=== PATIENT | female | born 1980 | race Caucasian/White ===

== ENCOUNTER 2016-07-20 20:35 | Day surgery (SDC) | payer OTHER, SELFPAY ==
[~2016-07-20] VITALS: Ht 172.7 cm; Wt 81.7 kg
--- NOTE | 2016-07-20 22:50 | REPUSA ---
Clinical history: Pain. Findings: Real-time transabdominal and transvaginal ultrasound images of the pelvis were obtained. An anteverted uterus is noted, measuring 10.7 x 6.3 x 7.1 cm. There is an intrauterine gestational sac with a mean sac diameter of 21.5 mm. No pole or yolk sac is identified. The gestational sac is abnormal in shape with questionable chorionic/amniotic separation. There is no evidence of a subchori onic hemorrhage. The right ovary measures 3.9 x 2.2 x 2.3 cm. The left ovary measures 3.0 x 2.3 x 2.2 cm. No adnexal masses are seen. There are multiple bilateral simple ovarian cysts. Color Doppler brett w is seen within both ovaries. There is no evidence of free fluid. Impression: 1. Single intrauterine gestation measuring 7 weeks 1 day by ultrasound measurements. However, no feta l pole is identified, the gestational sac is irregular in appearance. The findings are suspicious for a missed . Follow-up is suggested as clinically indicated.
[2016-07-20 23:23] LABS: MEAN CORPUSCULAR HEMOGLOBIN 30.5 pg (27.0-33.0); MEAN CORPUSCULAR HGB CONC 34.9 g/dl (32.0-36.5); MEAN CORPUSCULAR VOLUME 87.4 fl (80.0-96.0); RED CELL DISTRIBUTION WIDTH 13.4 % (11.5-14.5); WHITE BLOOD COUNT 9.2 K/mm3 (4.0-10.0)
[2016-07-20] MEDS ORDERED: ALEV220T26 PO (23:35)
[2016-07-21] VITALS (8 sets, daily range): BP systolic 94–117; BP diastolic 51–60
[2016-07-21 00:04] LABS: ANION GAP 7 MEQ/L (8-16); BLOOD UREA NITROGEN 15 MG/DL (7-18); CALCIUM LEVEL 7.4 MG/DL (8.5-10.1); CARBON DIOXIDE LEVEL 25 MEQ/L (21-32); CHLORIDE LEVEL 110 MEQ/L (98-107); CREATININE FOR GFR 0.51 MG/DL (0.55-1.02); GLOMERULAR FILTRATION RATE > 60.0 (>60); GLUCOSE, FASTING 109 MG/DL (70-105); POTASSIUM SERUM 3.8 MEQ/L (3.5-5.1); SODIUM LEVEL 142 MEQ/L (136-145)
[2016-07-21] MEDS ORDERED: fentaNYL 100 MCG/2 ML INJECTION (J3010) As Ordered ONE ×2 (00:38→02:03)
[2016-07-21] MEDS ORDERED: PROPOFOL 200 MG/20 ML VIAL As Ordered ONE (00:38)
[2016-07-21] MEDS ORDERED: LIDOCAINE 2% INJ 100 MG/5 ML SDV (FOR ANES.) As Ordered ONE (00:38)
[2016-07-21] MEDS ORDERED: MIDAZOLAM INJ 2 MG/2 ML VIAL (J2250) As Ordered ONE (00:38)
--- NOTE | 2016-07-21 00:48 | EDDOCDS ---
Physician Documentation [facility] Name: Bridget Padilla Age: 36 yrs Sex: Female : 1980 Arrival Date: 07/20/2016 Time: 20:35 Bed 1 Private MD: NO PRIMARY PHYSICIAN, . Disposition: 07/20 23:17 Critical Care: Critical care not applicable. pc Disposition: 07/20/16 23:20 Hospitalization ordered by Sheldon Hall for Inpatient Admission. Preliminary diagnosis are Missed , Anemia, unspecified. - Bed requested for Admit. - Status is Inpatient Admission. kmg1 - Condition is Stable. - Problem is new. - Symptoms have improved. HPI: 21:17 This 36 yrs old Female presents to ER via Ambulance with complaints of pc Vaginal Bleeding. 21:17 The history is obtained from the patient, transfer records. The gestational age is pc estimated to be 8 weeks. The patient presents with She was seen at for vaginal bleeding, was found to be RH positive, had a HCG of 3100 and had hemoglobin drop of 2.5g during the ED visit, with a subsequent transfusion of PRBCs. She was transferred here for US and OB involvement. She has not had any cramping or bleeding since leaving . The patient has had no care to date. The patient has not experienced similar symptoms in the past. 23:19 She has not had any oral intake since noon. pc Historical: - Allergies: No known drug Allergies; - Home Meds: 1. Aleve Oral as needed - PMHx: none; - PSHx: none; - The history from nurses notes was reviewed: and I agree with what is documented. - Social history: No barriers to communication noted, The patient speaks fluent Lithuanian, Speaks appropriately for age, Smoking status: Patient states former smoker of tobacco. - : The pt / caregiver states he / she is not on anticoagulants. Home medication list is obtained from the patient. - Hospitalizations: : No recent hospitalization is reported. - Exposure Risk Screening:: None identified. - Immunization history:: All immunizations up-to-date. - Family history: Not pertinent. - Social history:: the patient is a non-smoker, the patient does not drink alcohol. 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 The gastrointestinal and genitourinary pc components are also addressed in the HPI. Exam: 21:17 General Appearance: alert, no acute distress. pc 21:17 ENT: ear, nose and throat normal, pharynx normal. 21:17 Neck: The exam reveals no acute abnormalities. ROM is normal and painless. No nuchal rigidity is noted.. 21:17 Respiratory: breathing is even and unlabored, breath sounds are normal. 21:17 Cardiovascular: regular pulse rate, regular heart rhythm, normal heart sounds, equal and full pulses bilaterally. 21:17 Abdomen: non-tender, non-distended, normal bowel sounds. 21:17 Back: normal inspection. 21:17 Skin: skin color is normal, warm, dry. 21:17 Extremities: The extremities have a grossly normal appearance, are non-tender, without acute ROM abnormalities. 21:17 Neuro: alert, oriented to person, place and time, cranial nerves normal as tested, no motor deficits, no sensory deficits. 21:17 Psych: mood is normal. Vital Signs: 20:52 BP 110 / 60; Pulse 90; Resp 18; Temp 97.9(O); Pulse Ox 100% on R/A; Weight 81.65 kg / kmg1 180.01 lbs (R); Height 5 ft. 8 in. (172.72 cm) (R); Pain 0/10; 21:00 BP 113 / 62 (auto/); kmg1 21:00 Pulse 81 MON; Pulse Ox 100% ; kmg1 21:15 BP 117 / 74 (auto/); kmg1 21:15 Pulse 87 MON; Pulse Ox 100% ; kmg1 21:40 BP 106 / 62 (auto/); kmg1 21:40 Pulse 86 MON; Pulse Ox 99% ; kmg1 21:55 BP 105 / 59 (auto/); kmg1 21:55 Pulse 84 MON; Pulse Ox 100% ; kmg1 22:10 BP 100 / 63 (auto/); kmg1 22:10 Pulse 88 MON; Pulse Ox 99% ; km 22:25 BP 101 / 58 (auto/); km 22:25 Pulse 83 MON; Pulse Ox 98% ; kmg1 22:40 BP 101 / 58 (auto/); kmg1 22:40 Pulse 85 MON; Pulse Ox 97% ; kmg1 22:55 BP 102 / 63 (auto/); kmg1 22:55 Pulse 83 MON; Pulse Ox 98% ; kmg1 23:00 BP 102 / 59 Supine; Pulse 93; kmg1 23:02 BP 78 / 52 Sitting; Pulse 108; kmg1 23:07 BP 96 / 52 (auto/); kmg1 23:07 Pulse 74 MON; Pulse Ox 99% ; kmg1 23:10 BP 90 / 59 (auto/); kmg1 23:10 Pulse 79 MON; Pulse Ox 98% ; kmg1 23:25 BP 93 / 62 (auto/); kmg1 23:25 Pulse 81 MON; Pulse Ox 98% ; kmg1 23:40 BP 92 / 60 (auto/); kmg1 23:40 Pulse 83 MON; Pulse Ox 97% ; kmg1 23:55 BP 97 / 54 (auto/); kmg1 23:55 Pulse 91 MON; Pulse Ox 98% ; [facility] [place] 07/21 00:25 BP 105 / 55 (auto/); g1 00:25 Pulse 80 MON; Pulse Ox 98% ; g1 00:40 BP 96 / 52 (auto/); kmg1 00:40 Pulse 77 MON; Pulse Ox 98% ; [facility] [place] 07/20 20:52 Body Mass Index 27.37 (81.65 kg, 172.72 cm) [facility] [place] 07/20 23:02 Unabe to do standing pressure [facility] [place] MDM: 20:44 Leg Breaker/Pulse Ox/q 30 min VS ordered. pc 20:44 IV Saline Lock ordered. pc 20:45 NOTHING BY MOUTH+DIET ordered. EDMS 20:45 US 1st trimester: HCG 3100 Ordered. EDMS 21:07 Financial registration complete. zo 21:08 [facility] Payment Agreement was scanned into [employer] and attached to record. zo 22:58 Orthostatic VS ordered. pc 23:06 NS 0.9% 1000 ml IV at bolus once ordered. pc 23:07 US 1st trimester: HCG 3100 Reviewed. pc 23:11 CBC Ordered. EDMS 23:12 Type & Screen Ordered. EDMS 23:12 MED Profile Ordered. EDMS 23:17 Differential diagnosis: ectopic , incomplete , missed . Plan: [facility]. Data reviewed: old medical records, vital signs, nurses notes, lab test results, all radiology studies and available results. Test interpretation: LAB - all labs as ordered have been reviewed, interpreted and considered in the overall management of the clinical presentation; Ultrasound - interpreted by Radiologist, OB 1st trimester irregular shaped gestational sac, 7w1d without a pole, consistent with missed . The patient has been re-examined and re-evaluated. The patient's symptoms have mildly improved after treatment. Physician consultation: Dr. Sheldon Hall MD was contacted at 23:19, regarding patient's condition, and will see patient in ED, shortly. Disposition: The historical points, examination findings, and any diagnostic results supporting the provided diagnosis, were discussed with the patient or legal guardian. The need for further work-up and/or treatment in the hospital was explained. 07/21 00:06 Admission Orders was scanned into [employer] and attached to record. ml3 Administered Medications: 07/20 23:20 Drug: NS 0.9% 1000 ml [sodium chloride 0.9 % intravenous solution] Route: IV; Rate: kmg1 bolus; Site: left antecubital; Signatures: Dispatcher [employer] [facility] Aiden Juarez MD MD pc Soraida Roca, RN RN kmg1 Grey Deluca, Wind Turbine Erector Unit ml3 Karlene Wyman The chart was reviewed and I authenticate all verbal orders and agree with the evaluation and treatment provided.Corrections: (The following items were deleted from the chart) 21:20 21:17 The patient presents with She was seen at for vaginal bleeding, was found to pc be RH positive, had a HCG of 3100 and had hemoglobin drop of 2.5g during the ED visit. She was transferred here for US and OB involvement pc 23:12 23:08 HEMOGLOBIN & HEMATOCRIT+LAB ordered. [facility] EDMS Attachments: 21:08 [facility] Payment Agreement zo 07/21 00:06 Admission Orders ml3 MTDD
--- NOTE | 2016-07-21 00:48 | EDDOCDS ---
Nurse's Notes [facility] Name: Bridget Padilla Age: 36 yrs Sex: Female : 1980 Arrival Date: 07/20/2016 Time: 20:35 Bed 1 Private MD: NO PRIMARY PHYSICIAN, . Diagnosis: Missed ;Anemia, unspecified Presentation: 07/20 20:42 Presenting complaint: Transfer Nurse vaginal bleeding. Spotting began Saturday and kmg1 became worse today. Receiving Blood and fluids on arrival. Hypotensive en route. Tested positive for a few days ago. Risk factors: The patient reports no loss of conciousness prior to arrival. This patient has not had a hysterectomy. This patient has not begun menopause. Suicide/Homicide risk assessment- the patient denies having any suicidal and/or homicidal ideations and does not present with any other emotional, behavioral or mental health complaints. Status: Patient is not a extension service specialist or dependent. Transition of care: patient was not received from another setting of care. 20:42 Acuity: ALEXA Level 3 [facility] 20:42 Method Of Arrival: Amb[place] [facility] 07/21 00:44 Adult Sepsis Screening: The patient does not have new or worsening altered mentation. kmg1 Patient's respiratory rate is less than 22. Systolic blood pressure is greater than 100. Patient has a qSOFA score of 0- Negative Sepsis Screen. Triage Assessment: 07/20 20:52 General: Appears in no apparent distress, comfortable, Behavior is appropriate for age, kmg1 cooperative, pleasant. Pain: Denies pain. Cardiovascular: Capillary refill < 3 seconds Rhythm is sinus rhythm No ectopy. Respiratory: Airway is patent Respiratory effort is even, unlabored, Respiratory pattern is regular, symmetrical. : Reports vaginal bleeding that is bright red with clots heavy flow earlier. Slowing now. Derm: Skin is pale. 07/21 00:47 Pt Declines HIV testing. 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 Aleve Oral as needed - PMHx: none; - PSHx: none; - The history from nurses notes was reviewed: and I agree with what is documented. - Social history: No barriers to communication noted, The patient speaks fluent Frisian, Speaks appropriately for age, Smoking status: Patient states former smoker of tobacco. - : The pt / caregiver states he / she is not on anticoagulants. Home medication list is obtained from the patient. - Hospitalizations: : No recent hospitalization is reported. - Exposure Risk Screening:: None identified. - Immunization history:: All immunizations up-to-date. - Family history: Not pertinent. - Social history:: the patient is a non-smoker, the patient does not drink alcohol. Screenin:50 Screening information is obtained from the patient. Fall risk: At risk due to prior [facility] history of falls, dizziness. Assistance ADL's: requires no assistance with activities of daily living. Abuse/DV Screen: The patient / caregiver reports he/she is: not in a situation that causes fear, pain or injury. Nutritional screening: No deficits noted. Advance Directives: There is no active DNR order. home support is adequate. Assessment: 20:50 General: See triage assessment. kmg1 21:50 General: Appears in no apparent distress, comfortable, Behavior is appropriate for age, kmg1 quiet. Pain: Denies pain. : no fresh bleeding noted. Derm: Skin is pink, warm & dry. 22:43 General: Appears in no apparent distress, comfortable, Behavior is appropriate for age, kmg1 cooperative, quiet. Pain: Denies pain. Cardiovascular: Rhythm is sinus rhythm No ectopy. Respiratory: Airway is patent Respiratory effort is even, unlabored. 23:52 General: Appears in no apparent distress, comfortable, Behavior is quiet. kmg1 Cardiovascular: Rhythm is sinus rhythm No ectopy. Respiratory: No deficits noted. Airway is patent Respiratory effort is even, unlabored, Respiratory pattern is regular, symmetrical. : No bleeding at this time. 07/21 00:18 Reassessment: Awaiting surgery. Quiet on stretcher. kmg1 00:45 General: Appears in no apparent distress, comfortable, Behavior is appropriate for age, kmg1 cooperative, pleasant. Pain: Denies pain. Cardiovascular: Rhythm is sinus rhythm No ectopy. Respiratory: Airway is patent Respiratory effort is even, unlabored, Respiratory pattern is regular, symmetrical. : No bleeding at this time. Vital Signs: 01/06 20:52 BP 110 / 60; Pulse 90; Resp 18; Temp 97.9(O); Pulse Ox 100% on R/A; Weight 81.65 kg km (R); Height 5 ft. 8 in. (172.72 cm) (R); Pain 0/10; 21:00 BP 113 / 62 (auto/); kmg1 21:00 Pulse 81 MON; Pulse Ox 100% ; kmg1 21:15 BP 117 / 74 (auto/); kmg1 21:15 Pulse 87 MON; Pulse Ox 100% ; kmg1 21:40 BP 106 / 62 (auto/); kmg1 21:40 Pulse 86 MON; Pulse Ox 99% ; kmg1 21:55 BP 105 / 59 (auto/); kmg1 21:55 Pulse 84 MON; Pulse Ox 100% ; kmg1 22:10 BP 100 / 63 (auto/); kmg1 22:10 Pulse 88 MON; Pulse Ox 99% ; kmg1 22:25 BP 101 / 58 (auto/); kmg1 22:25 Pulse 83 MON; Pulse Ox 98% ; kmg1 22:40 BP 101 / 58 (auto/); kmg1 22:40 Pulse 85 MON; Pulse Ox 97% ; kmg1 22:55 BP 102 / 63 (auto/); kmg1 22:55 Pulse 83 MON; Pulse Ox 98% ; kmg1 23:00 BP 102 / 59 Supine; Pulse 93; kmg1 23:02 BP 78 / 52 Sitting; Pulse 108; kmg1 23:07 BP 96 / 52 (auto/); kmg1 23:07 Pulse 74 MON; Pulse Ox 99% ; kmg1 23:10 BP 90 / 59 (auto/); kmg1 23:10 Pulse 79 MON; Pulse Ox 98% ; kmg1 23:25 BP 93 / 62 (auto/); kmg1 23:25 Pulse 81 MON; Pulse Ox 98% ; kmg1 23:40 BP 92 / 60 (auto/); kmg1 23:40 Pulse 83 MON; Pulse Ox 97% ; kmg1 23:55 BP 97 / 54 (auto/); kmg1 23:55 Pulse 91 MON; Pulse Ox 98% ; kmg1 07/21 00:25 BP 105 / 55 (auto/); kmg1 00:25 Pulse 80 MON; Pulse Ox 98% ; kmg1 00:40 BP 96 / 52 (auto/); kmg1 00:40 Pulse 77 MON; Pulse Ox 98% ; [facility] 07/20 20:52 Body Mass Index 27.37 (81.65 kg, 172.72 cm) km 07/20 23:02 Unabe to do standing pressure km Vitals: 20:52 Log In Time N/A - ambulance arrival. [facility] ED Course: 20:36 Patient visited by Grey Deluca, Film Editor Supervisor. ml3 20:36 NO PRIMARY PHYSICIAN, . is Private Physician. ml3 20:36 Patient moved to Waiting ml3 20:37 Soraida Roca, DEVEN is Primary Nurse. ml3 20:37 Patient moved to 1 ml3 20:43 Aiden Juarez MD is Attending Physician. pc 20:45 Triage Initiated kmg1 20:48 Patient visited by Aiden Juarez MD. pc 20:56 Patient visited by Soraida Roca RN. kmg1 20:57 Patient name changed from Bridget\S\K\S\Condinodair\S\ to Bridget\S\K\S\Condino. EDMS 21:02 Patient visited by Khalif Alston PCA. kb5 21:08 [facility] Payment Agreement was scanned into [employer] and attached to record. zo 21:12 Patient visited by Soraida Roca RN. kmg1 22:17 Patient visited by Aiden Juarez MD. pc 22:44 IV is patent, is intact. kmg1 22:45 Patient visited by Soraida Roca RN. kmg1 22:46 Patient visited by Soraida Roca RN. kmg1 22:52 US 1st trimester: HCG 3100 Returned. EDMS 23:20 Sheldon Hall MD is Hospitalizing Provider. pc 23:24 MED Profile Sent. kmg1 23:24 Type & Screen Sent. kmg1 23:27 Patient visited by Soraida Roca RN. kmg1 23:53 Patient visited by Soraida Roca RN. [facility] 07/21 00:06 Admission Orders was scanned into [employer] and attached to record. ml3 00:19 Patient visited by Soraida Roca RN. kmg1 00:46 No procedures done that require assistance. kmg1 00:47 The patient / caregiver is instructed regarding the plan of care and ED course. kmg1 Administered Medications: 07/20 23:20 Drug: NS 0.9% 1000 ml [sodium chloride 0.9 % intravenous solution] Route: IV; Rate: kmg1 bolus; Site: left antecubital; Output: 21:08 Urine: 200.00ml (Voided); Total: 200.00ml. kmg1 Order Results: Lab Order: CBC; SPEC'07/20/16 23:17 Test: WHITE BLOOD COUNT; Value: 9.2; Range: 4.0-10.0; Units: K/mm3; Status: F Test: RED BLOOD COUNT; Value: 3.24; Range: 4.00-5.40; Abnormal: Below low normal; Units: M/mm3; Status: F Test: HEMOGLOBIN; Value: 9.9; Range: 12.0-16.0; Abnormal: Below low normal; Units: g/dl; Status: F Test: HEMATOCRIT; Value: 28.3; Range: 36.0-47.0; Abnormal: Below low normal; Units: %; Status: F Test: MEAN CORPUSCULAR VOLUME; Value: 87.4; Range: 80.0-96.0; Units: fl; Status: F Test: MEAN CORPUSCULAR HEMOGLOBIN; Value: 30.5; Range: 27.0-33.0; Units: pg; Status: F Test: MEAN CORPUSCULAR HGB CONC; Value: 34.9; Range: 32.0-36.5; Units: g/dl; Status: F Test: RED CELL DISTRIBUTION WIDTH; Value: 13.4; Range: 11.5-14.5; Units: %; Status: F Test: PLATELET COUNT, AUTOMATED; Value: 173; Range: 150-450; Units: k/mm3; Status: F Lab Order: Type & Screen; [facility] 23:17 Test: BLOOD TYPE; Value: O POS; Status: F Lab Order: MED Profile; 07/20/16 23:20 Test: GLUCOSE, FASTING; Value: 109; Range: 70-105; Abnormal: Above high normal; Units: MG/DL; Status: F Test: BLOOD UREA NITROGEN; Value: 15; Range: 7-18; Units: MG/DL; Status: F Test: CREATININE FOR GFR; Value: 0.51; Range: 0.55-1.02; Abnormal: Below low normal; Units: MG/DL; Status: F Test: GLOMERULAR FILTRATION RATE; Value: > 60.0; Range: >60; Status: F Test: SODIUM LEVEL; Value: 142; Range: 136-145; Units: MEQ/L; Status: F Test: POTASSIUM SERUM; Value: 3.8; Range: 3.5-5.1; Units: MEQ/L; Status: F Test: CHLORIDE LEVEL; Value: 110; Range: 98-107; Abnormal: Above high normal; Units: MEQ/L; Status: F Test: CARBON DIOXIDE LEVEL; Value: 25; Range: 21-32; Units: MEQ/L; Status: F Test: ANION GAP; Value: 7; Range: 8-16; Abnormal: Below low normal; Units: MEQ/L; Status: F Test: CALCIUM LEVEL; Value: 7.4; Range: 8.5-10.1; Abnormal: Below low normal; Units: MG/DL; Status: F Test Note: ; Units are mL/min/1.73 m2 Chronic Kidney Disease Staging per NKF: Stage I & II GFR >=60 Normal to Mildly Decreased Stage III GFR 30-59 Moderately Decreased Stage IV GFR 15-29 Severely Decreased Stage V GFR <15 Very Little GFR Left ESRD GFR <15 on MONOTYPE SETTER Radiology Order: US 1st trimester: HCG 3100 Test: US 1st trimester: HCG 3100 REASON FOR EXAMINATION: Bleeding; ; Clinical history: Pain.; Findings: Real-time transabdominal and transvaginal ultrasound images of the pelvis were obtained. An; anteverted uterus is noted, measuring 10.7 x 6.3 x 7.1 cm. There is an intrauterine gestational sac; with a mean sac diameter of 21.5 mm. No pole or yolk sac is identified. The gestational sac is; abnormal in shape with questionable chorionic/amniotic separation. There is no evidence of a subchori; onic hemorrhage. The right ovary measures 3.9 x 2.2 x 2.3 cm. The left ovary measures 3.0 x 2.3 x 2.2; cm. No adnexal masses are seen. There are multiple bilateral simple ovarian cysts. Color Doppler brett; w is seen within both ovaries. There is no evidence of free fluid.; Impression:; 1. Single intrauterine gestation measuring 7 weeks 1 day by ultrasound measurements. However, no feta; l pole is identified, the gestational sac is irregular in appearance. The findings are suspicious for; a missed . Follow-up is suggested as clinically indicated.; ; Outcome: 23:20 Decision to Hospitalize by Provider. 07/21 00:46 Discharge Assessment: Patient awake, alert and oriented x 3. No cognitive and/or kmg1 functional deficits noted. Patient verbalized understanding of disposition instructions. Patient awake and alert. patient administered narcotics - no. The following High Risk Discharge criteria are identified: None. Admitted to OR accompanied by nurse, accompanied by tech, via stretcher, with chart. Condition: stable. Ultrasound Study completed. Property :Personal belongings accompany Pt. 00:47 Patient left the ED. kmg1 Signatures: Dispatcher [employer] Aiden Gilliam MD MD Soraida Roca, RN RN kmg1 Grey Deluca, Film Editor Supervisor Unit ml3 Karlene Wyman Kristopher, SEED PELLETER SEED PELLETER kb5 MTDD
[2016-07-21] MEDS ORDERED: KETOROLAC 60 MG/2 ML VIAL (J1885) As Ordered ONE (01:23)
[2016-07-21] MEDS ORDERED: ONDANSETRON 4MG/2ML VIAL (J2405) As Ordered ONE ×2 (01:23→02:03)
[2016-07-21] MEDS ORDERED: ePHEDrine SULFATE 25 MG/5 ML(5MG/ML) SYRINGE As Ordered ONE (01:29)
[2016-07-21] MEDS ORDERED: METHYLERGONOVINE MALEATE 0.2 MG/ML VIAL (J2210) As Ordered ONE (01:35)
[2016-07-21] MEDS ORDERED: METHYLERGONOVINE MALEATE 0.2 MG/ML VIAL (J2210) IM ONE (01:36)
[2016-07-21] MEDS ORDERED: miSOPROStol 200 MCG TAB (S0191) As Ordered ONE (01:36)
[2016-07-21] MEDS ORDERED: miSOPROStol 200 MCG TAB (S0191) PR ONE (01:37)
[2016-07-21] MEDS ORDERED: ONDANSETRON 4MG/2ML VIAL (J2405) IV PRN ×2 (02:30→03:45)
[2016-07-21] MEDS ORDERED: fentaNYL 100 MCG/2 ML INJECTION (J3010) IV PRN (02:30)
[2016-07-21] MEDS ORDERED: LR 1,000 ML IV SCH ×2 (02:30→03:45)
[2016-07-21] MEDS ORDERED: METOCLOPRAMIDE INJ 10MG/2ML VIAL (J2765) IV PRN (02:30)
[2016-07-21] MEDS ORDERED: LACTATED RINGER'S 1000 ML IV ONE (02:45)
[2016-07-21] MEDS ORDERED: ACETAMINOPHEN 500 MG TAB PO PRN (03:45)
[2016-07-21 06:56] LABS: MEAN CORPUSCULAR HEMOGLOBIN 30.4 pg (27.0-33.0); MEAN CORPUSCULAR HGB CONC 33.9 g/dl (32.0-36.5); MEAN CORPUSCULAR VOLUME 89.6 fl (80.0-96.0); RED CELL DISTRIBUTION WIDTH 12.8 % (11.5-14.5); WHITE BLOOD COUNT 5.8 K/mm3 (4.0-10.0)
[2016-07-21] MEDS ORDERED: DOXYCYCLINE HYCLATE 100 MG TAB PO SCH (09:00)
[2016-07-21] MEDS ORDERED: DOXY-278 PO (10:05)
[2016-07-21] MEDS ORDERED: TYLE325T5 PO (10:05)
--- NOTE | 2016-07-23 08:07 | RO ---
DATE OF PROCEDURE: 07/21/2016 PREOPERATIVE DIAGNOSIS: Incomplete . POSTOPERATIVE DIAGNOSIS: Incomplete . PROCEDURE: Dilation, evacuation and curettage. SURGEON: Sheldon Hall MD CREW DIRECTOR: ANESTHESIA: General endotracheal anesthesia. ESTIMATED BLOOD LOSS: 200 mL. URINE OUTPUT: 300 mL. FINDINGS: Moderate amount of products of conception. Midline uterus. Uterine atony after procedure. DESCRIPTION OF PROCEDURE: The patient was taken to the operating room where general endotracheal anesthesia was induced. She was prepped and draped in a sterile fashion in the dorsal lithotomy position. A speculum was placed in the vagina. The anterior lip of the cervix was grasped with a tenaculum. The cervix was dilated with tapered dilators. An 9 mm suction curette was placed through the internal os. The suction device was activated. The curette was gently rotated until products of conception were noted to be coming through the suction tube. Sharp curettage was performed. The patient continued bleeding and the uterus appears atonic. The patient received 0.2 mg of Methergine IM. She received 800 mcg of Cytotec per rectum. Over time with continued suction curettage the uterine tone improved and bleeding stopped. All instruments were removed. The bladder had been emptied for 300 mL through the catheter. Sponge and instrument counts were correct. The patient went to the recovery room in stable condition. Edited 07/23/2016 @ 0948 [facility]
--- NOTE | 2016-07-24 10:18 | EDDOCDS ---
Nurse's Notes [facility] Name: Bridget Padilla Age: 36 yrs Sex: Female : 1980 Arrival Date: 07/20/2016 Time: 20:35 Bed 1 Private MD: NO PRIMARY PHYSICIAN, . Diagnosis: Missed ;Anemia, unspecified Presentation: 07/20 20:42 Presenting complaint: Transfer Nurse vaginal bleeding. Spotting began Saturday and kmg1 became worse today. Receiving Blood and fluids on arrival. Hypotensive en route. Tested positive for a few days ago. Risk factors: The patient reports no loss of conciousness prior to arrival. This patient has not had a hysterectomy. This patient has not begun menopause. Suicide/Homicide risk assessment- the patient denies having any suicidal and/or homicidal ideations and does not present with any other emotional, behavioral or mental health complaints. Status: Patient is not a professional services specialist or dependent. Transition of care: patient was not received from another setting of care. 20:42 Acuity: ALEXA Level 3 [facility] 20:42 Method Of Arrival: Ambulance [facility] 07/21 00:44 Adult Sepsis Screening: The patient does not have new or worsening altered mentation. kmg1 Patient's respiratory rate is less than 22. Systolic blood pressure is greater than 100. Patient has a qSOFA score of 0- Negative Sepsis Screen. Triage Assessment: 07/20 20:52 General: Appears in no apparent distress, comfortable, Behavior is appropriate for age, kmg1 cooperative, pleasant. Pain: Denies pain. Cardiovascular: Capillary refill < 3 seconds Rhythm is sinus rhythm No ectopy. Respiratory: Airway is patent Respiratory effort is even, unlabored, Respiratory pattern is regular, symmetrical. : Reports vaginal bleeding that is bright red with clots heavy flow earlier. Slowing now. Derm: Skin is pale. 07/21 00:47 Pt Declines HIV testing. [facility] BANANA LOADER: 07/20 20:52 7, Full Term 6, Living 6, LMP 06/08/2016, Verified, EDC 03/15/2017, [facility] Gestational age from LMP: 6 weeks 1 day 21:17 7, Living 6 pc Historical: - Allergies: No known drug Allergies; - Home Meds: 1. Aleve Oral as needed - PMHx: none; - PSHx: none; - The history from nurses notes was reviewed: and I agree with what is documented. - Social history: No barriers to communication noted, The patient speaks fluent Irish, Speaks appropriately for age, Smoking status: Patient states former smoker of tobacco. - : The pt / caregiver states he / she is not on anticoagulants. Home medication list is obtained from the patient. - Hospitalizations: : No recent hospitalization is reported. - Exposure Risk Screening:: None identified. - Immunization history:: All immunizations up-to-date. - Family history: Not pertinent. - Social history:: the patient is a non-smoker, the patient does not drink alcohol. Screenin:50 Screening information is obtained from the patient. Fall risk: At risk due to prior [facility] history of falls, dizziness. Assistance ADL's: requires no assistance with activities of daily living. Abuse/DV Screen: The patient / caregiver reports he/she is: not in a situation that causes fear, pain or injury. Nutritional screening: No deficits noted. Advance Directives: There is no active DNR order. home support is adequate. Assessment: 20:50 General: See triage assessment. kmg1 21:50 General: Appears in no apparent distress, comfortable, Behavior is appropriate for age, kmg1 quiet. Pain: Denies pain. : no fresh bleeding noted. Derm: Skin is pink, warm & dry. 22:43 General: Appears in no apparent distress, comfortable, Behavior is appropriate for age, kmg1 cooperative, quiet. Pain: Denies pain. Cardiovascular: Rhythm is sinus rhythm No ectopy. Respiratory: Airway is patent Respiratory effort is even, unlabored. 23:52 General: Appears in no apparent distress, comfortable, Behavior is quiet. kmg1 Cardiovascular: Rhythm is sinus rhythm No ectopy. Respiratory: No deficits noted. Airway is patent Respiratory effort is even, unlabored, Respiratory pattern is regular, symmetrical. : No bleeding at this time. 07/21 00:18 Reassessment: Awaiting surgery. Quiet on stretcher. kmg1 00:45 General: Appears in no apparent distress, comfortable, Behavior is appropriate for age, kmg1 cooperative, pleasant. Pain: Denies pain. Cardiovascular: Rhythm is sinus rhythm No ectopy. Respiratory: Airway is patent Respiratory effort is even, unlabored, Respiratory pattern is regular, symmetrical. : No bleeding at this time. Vital Signs: 01/06 20:52 BP 110 / 60; Pulse 90; Resp 18; Temp 97.9(O); Pulse Ox 100% on R/A; Weight 81.65 kg km (R); Height 5 ft. 8 in. (172.72 cm) (R); Pain 0/10; 21:00 BP 113 / 62 (auto/); kmg1 21:00 Pulse 81 MON; Pulse Ox 100% ; kmg1 21:15 BP 117 / 74 (auto/); kmg1 21:15 Pulse 87 MON; Pulse Ox 100% ; kmg1 21:40 BP 106 / 62 (auto/); kmg1 21:40 Pulse 86 MON; Pulse Ox 99% ; kmg1 21:55 BP 105 / 59 (auto/); kmg1 21:55 Pulse 84 MON; Pulse Ox 100% ; kmg1 22:10 BP 100 / 63 (auto/); kmg1 22:10 Pulse 88 MON; Pulse Ox 99% ; kmg1 22:25 BP 101 / 58 (auto/); kmg1 22:25 Pulse 83 MON; Pulse Ox 98% ; kmg1 22:40 BP 101 / 58 (auto/); kmg1 22:40 Pulse 85 MON; Pulse Ox 97% ; kmg1 22:55 BP 102 / 63 (auto/); kmg1 22:55 Pulse 83 MON; Pulse Ox 98% ; kmg1 23:00 BP 102 / 59 Supine; Pulse 93; kmg1 23:02 BP 78 / 52 Sitting; Pulse 108; kmg1 23:07 BP 96 / 52 (auto/); kmg1 23:07 Pulse 74 MON; Pulse Ox 99% ; kmg1 23:10 BP 90 / 59 (auto/); kmg1 23:10 Pulse 79 MON; Pulse Ox 98% ; kmg1 23:25 BP 93 / 62 (auto/); kmg1 23:25 Pulse 81 MON; Pulse Ox 98% ; kmg1 23:40 BP 92 / 60 (auto/); kmg1 23:40 Pulse 83 MON; Pulse Ox 97% ; kmg1 23:55 BP 97 / 54 (auto/); kmg1 23:55 Pulse 91 MON; Pulse Ox 98% ; kmg1 07/21 00:25 BP 105 / 55 (auto/); kmg1 00:25 Pulse 80 MON; Pulse Ox 98% ; kmg1 00:40 BP 96 / 52 (auto/); kmg1 00:40 Pulse 77 MON; Pulse Ox 98% ; [facility] 07/20 20:52 Body Mass Index 27.37 (81.65 kg, 172.72 cm) km 07/20 23:02 Unabe to do standing pressure km Vitals: 20:52 Log In Time N/A - ambulance arrival. [facility] ED Course: 20:36 Patient visited by Grey Deluca, Mosaic Technician. ml3 20:36 NO PRIMARY PHYSICIAN, . is Private Physician. ml3 20:36 Patient moved to Waiting ml3 20:37 Soraida Roca, DEVEN is Primary Nurse. ml3 20:37 Patient moved to 1 ml3 20:43 Aiden Juarez MD is Attending Physician. pc 20:45 Triage Initiated kmg1 20:48 Patient visited by Aiden Juarez MD. pc 20:56 Patient visited by Soraida Roca RN. kmg1 20:57 Patient name changed from Bridget\S\K\S\Condinodair\S\ to Bridget\S\K\S\Condino. EDMS 21:02 Patient visited by Khalif Alston PCA. kb5 21:08 [facility] Payment Agreement was scanned into [employer] and attached to record. zo 21:12 Patient visited by Soraida Roca RN. kmg1 22:17 Patient visited by Aiden Juarez MD. pc 22:44 IV is patent, is intact. kmg1 22:45 Patient visited by Soraida Roca RN. kmg1 22:46 Patient visited by Soraida Roca RN. kmg1 22:52 US 1st trimester: HCG 3100 Returned. EDMS 23:20 Sheldon Hall MD is Hospitalizing Provider. pc 23:24 MED Profile Sent. kmg1 23:24 Type & Screen Sent. kmg1 23:27 Patient visited by Soraida Roca RN. kmg1 23:53 Patient visited by Soraida Roca RN. [facility] 07/21 00:06 Admission Orders was scanned into [employer] and attached to record. ml3 00:19 Patient visited by Soraida Roca RN. kmg1 00:46 No procedures done that require assistance. kmg1 00:47 The patient / caregiver is instructed regarding the plan of care and ED course. kmg1 Administered Medications: 07/20 23:20 Drug: NS 0.9% 1000 ml [sodium chloride 0.9 % intravenous solution] Route: IV; Rate: kmg1 bolus; Site: left antecubital; Output: 21:08 Urine: 200.00ml (Voided); Total: 200.00ml. kmg1 Order Results: Lab Order: CBC; SPEC'07/20/16 23:17 Test: WHITE BLOOD COUNT; Value: 9.2; Range: 4.0-10.0; Units: K/mm3; Status: F Test: RED BLOOD COUNT; Value: 3.24; Range: 4.00-5.40; Abnormal: Below low normal; Units: M/mm3; Status: F Test: HEMOGLOBIN; Value: 9.9; Range: 12.0-16.0; Abnormal: Below low normal; Units: g/dl; Status: F Test: HEMATOCRIT; Value: 28.3; Range: 36.0-47.0; Abnormal: Below low normal; Units: %; Status: F Test: MEAN CORPUSCULAR VOLUME; Value: 87.4; Range: 80.0-96.0; Units: fl; Status: F Test: MEAN CORPUSCULAR HEMOGLOBIN; Value: 30.5; Range: 27.0-33.0; Units: pg; Status: F Test: MEAN CORPUSCULAR HGB CONC; Value: 34.9; Range: 32.0-36.5; Units: g/dl; Status: F Test: RED CELL DISTRIBUTION WIDTH; Value: 13.4; Range: 11.5-14.5; Units: %; Status: F Test: PLATELET COUNT, AUTOMATED; Value: 173; Range: 150-450; Units: k/mm3; Status: F Lab Order: Type & Screen; [facility]07/20/16 23:17 Test: BLOOD TYPE; Value: O POS; Status: F Lab Order: MED Profile; 07/20/16 23:20 Test: GLUCOSE, FASTING; Value: 109; Range: 70-105; Abnormal: Above high normal; Units: MG/DL; Status: F Test: BLOOD UREA NITROGEN; Value: 15; Range: 7-18; Units: MG/DL; Status: F Test: CREATININE FOR GFR; Value: 0.51; Range: 0.55-1.02; Abnormal: Below low normal; Units: MG/DL; Status: F Test: GLOMERULAR FILTRATION RATE; Value: > 60.0; Range: >60; Status: F Test: SODIUM LEVEL; Value: 142; Range: 136-145; Units: MEQ/L; Status: F Test: POTASSIUM SERUM; Value: 3.8; Range: 3.5-5.1; Units: MEQ/L; Status: F Test: CHLORIDE LEVEL; Value: 110; Range: 98-107; Abnormal: Above high normal; Units: MEQ/L; Status: F Test: CARBON DIOXIDE LEVEL; Value: 25; Range: 21-32; Units: MEQ/L; Status: F Test: ANION GAP; Value: 7; Range: 8-16; Abnormal: Below low normal; Units: MEQ/L; Status: F Test: CALCIUM LEVEL; Value: 7.4; Range: 8.5-10.1; Abnormal: Below low normal; Units: MG/DL; Status: F Test Note: ; Units are mL/min/1.73 m2 Chronic Kidney Disease Staging per NKF: Stage I & II GFR >=60 Normal to Mildly Decreased Stage III GFR 30-59 Moderately Decreased Stage IV GFR 15-29 Severely Decreased Stage V GFR <15 Very Little GFR Left ESRD GFR <15 on FRENCH TRANSLATOR Radiology Order: US 1st trimester: HCG 3100 Test: US 1st trimester: HCG 3100 REASON FOR EXAMINATION: Bleeding; ; Clinical history: Pain.; Findings: Real-time transabdominal and transvaginal ultrasound images of the pelvis were obtained. An; anteverted uterus is noted, measuring 10.7 x 6.3 x 7.1 cm. There is an intrauterine gestational sac; with a mean sac diameter of 21.5 mm. No pole or yolk sac is identified. The gestational sac is; abnormal in shape with questionable chorionic/amniotic separation. There is no evidence of a subchori; onic hemorrhage. The right ovary measures 3.9 x 2.2 x 2.3 cm. The left ovary measures 3.0 x 2.3 x 2.2; cm. No adnexal masses are seen. There are multiple bilateral simple ovarian cysts. Color Doppler brett; w is seen within both ovaries. There is no evidence of free fluid.; Impression:; 1. Single intrauterine gestation measuring 7 weeks 1 day by ultrasound measurements. However, no feta; l pole is identified, the gestational sac is irregular in appearance. The findings are suspicious for; a missed . Follow-up is suggested as clinically indicated.; ; Outcome: 23:20 Decision to Hospitalize by Provider. 07/21 00:46 Discharge Assessment: Patient awake, alert and oriented x 3. No cognitive and/or kmg1 functional deficits noted. Patient verbalized understanding of disposition instructions. Patient awake and alert. patient administered narcotics - no. The following High Risk Discharge criteria are identified: None. Admitted to OR accompanied by nurse, accompanied by tech, via stretcher, with chart. Condition: stable. Ultrasound Study completed. Property :Personal belongings accompany Pt. 00:47 Patient left the ED. kmg1 Signatures: Dispatcher [employer] Aiden Gilliam MD MD Soraida Roca, RN RN kmg1 Grey Deluca, Mosaic Technician Unit ml3 Karlene Wyman Kristopher, RAPIER INSERTION LOOM FIXER RAPIER INSERTION LOOM FIXER kb5 Chart Complete LICO
--- NOTE | 2016-07-24 10:18 | EDDOCDS ---
Physician Documentation [facility] Name: Bridget Padilla Age: 36 yrs Sex: Female : 1980 Arrival Date: 07/20/2016 Time: 20:35 Bed 1 Private MD: NO PRIMARY PHYSICIAN, . Disposition: 07/20 23:17 Critical Care: Critical care not applicable. pc Disposition: 07/20/16 23:20 Hospitalization ordered by Sheldon Hall for Inpatient Admission. Preliminary diagnosis are Missed , Anemia, unspecified. - Bed requested for Admit. - Status is Inpatient Admission. kmg1 - Condition is Stable. - Problem is new. - Symptoms have improved. HPI: 21:17 This 36 yrs old Female presents to ER via Ambulance with complaints of pc Vaginal Bleeding. 21:17 The history is obtained from the patient, transfer records. The gestational age is pc estimated to be 8 weeks. The patient presents with She was seen at for vaginal bleeding, was found to be RH positive, had a HCG of 3100 and had hemoglobin drop of 2.5g during the ED visit, with a subsequent transfusion of PRBCs. She was transferred here for US and OB involvement. She has not had any cramping or bleeding since leaving . The patient has had no care to date. The patient has not experienced similar symptoms in the past. 23:19 She has not had any oral intake since noon. pc Historical: - Allergies: No known drug Allergies; - Home Meds: 1. Aleve Oral as needed - PMHx: none; - PSHx: none; - The history from nurses notes was reviewed: and I agree with what is documented. - Social history: No barriers to communication noted, The patient speaks fluent Barbadian, Speaks appropriately for age, Smoking status: Patient states former smoker of tobacco. - : The pt / caregiver states he / she is not on anticoagulants. Home medication list is obtained from the patient. - Hospitalizations: : No recent hospitalization is reported. - Exposure Risk Screening:: None identified. - Immunization history:: All immunizations up-to-date. - Family history: Not pertinent. - Social history:: the patient is a non-smoker, the patient does not drink alcohol. TECHNICAL INTERNSHIP: 20:52 7, Full Term 6, Living 6, LMP 06/08/2016, Verified, EDC 03/15/2017, kmg1 Gestational age from LMP: 6 weeks 1 day 21:17 7, Living 6 pc ROS: 21:17 All systems are negative except as listed. The gastrointestinal and genitourinary pc components are also addressed in the HPI. Exam: 21:17 General Appearance: alert, no acute distress. pc 21:17 ENT: ear, nose and throat normal, pharynx normal. 21:17 Neck: The exam reveals no acute abnormalities. ROM is normal and painless. No nuchal rigidity is noted.. 21:17 Respiratory: breathing is even and unlabored, breath sounds are normal. 21:17 Cardiovascular: regular pulse rate, regular heart rhythm, normal heart sounds, equal and full pulses bilaterally. 21:17 Abdomen: non-tender, non-distended, normal bowel sounds. 21:17 Back: normal inspection. 21:17 Skin: skin color is normal, warm, dry. 21:17 Extremities: The extremities have a grossly normal appearance, are non-tender, without acute ROM abnormalities. 21:17 Neuro: alert, oriented to person, place and time, cranial nerves normal as tested, no motor deficits, no sensory deficits. 21:17 Psych: mood is normal. Vital Signs: 20:52 BP 110 / 60; Pulse 90; Resp 18; Temp 97.9(O); Pulse Ox 100% on R/A; Weight 81.65 kg / kmg1 180.01 lbs (R); Height 5 ft. 8 in. (172.72 cm) (R); Pain 0/10; 21:00 BP 113 / 62 (auto/); kmg1 21:00 Pulse 81 MON; Pulse Ox 100% ; kmg1 21:15 BP 117 / 74 (auto/); kmg1 21:15 Pulse 87 MON; Pulse Ox 100% ; kmg1 21:40 BP 106 / 62 (auto/); kmg1 21:40 Pulse 86 MON; Pulse Ox 99% ; kmg1 21:55 BP 105 / 59 (auto/); kmg1 21:55 Pulse 84 MON; Pulse Ox 100% ; kmg1 22:10 BP 100 / 63 (auto/); kmg1 22:10 Pulse 88 MON; Pulse Ox 99% ; km 22:25 BP 101 / 58 (auto/); km 22:25 Pulse 83 MON; Pulse Ox 98% ; kmg1 22:40 BP 101 / 58 (auto/); kmg1 22:40 Pulse 85 MON; Pulse Ox 97% ; kmg1 22:55 BP 102 / 63 (auto/); kmg1 22:55 Pulse 83 MON; Pulse Ox 98% ; kmg1 23:00 BP 102 / 59 Supine; Pulse 93; kmg1 23:02 BP 78 / 52 Sitting; Pulse 108; kmg1 23:07 BP 96 / 52 (auto/); kmg1 23:07 Pulse 74 MON; Pulse Ox 99% ; kmg1 23:10 BP 90 / 59 (auto/); kmg1 23:10 Pulse 79 MON; Pulse Ox 98% ; kmg1 23:25 BP 93 / 62 (auto/); kmg1 23:25 Pulse 81 MON; Pulse Ox 98% ; kmg1 23:40 BP 92 / 60 (auto/); kmg1 23:40 Pulse 83 MON; Pulse Ox 97% ; kmg1 23:55 BP 97 / 54 (auto/); kmg1 23:55 Pulse 91 MON; Pulse Ox 98% ; [facility] 07/21 00:25 BP 105 / 55 (auto/); g1 00:25 Pulse 80 MON; Pulse Ox 98% ; g1 00:40 BP 96 / 52 (auto/); kmg1 00:40 Pulse 77 MON; Pulse Ox 98% ; [facility] 07/20 20:52 Body Mass Index 27.37 (81.65 kg, 172.72 cm) [facility] 07/20 23:02 Unabe to do standing pressure [facility] MDM: 20:44 Membership Sales Representative/Pulse Ox/q 30 min VS ordered. pc 20:44 IV Saline Lock ordered. pc 20:45 NOTHING BY MOUTH+DIET ordered. EDMS 20:45 US 1st trimester: HCG 3100 Ordered. EDMS 21:07 Financial registration complete. zo 21:08 [facility] Payment Agreement was scanned into stiQRd and attached to record. zo 22:58 Orthostatic VS ordered. pc 23:06 NS 0.9% 1000 ml IV at bolus once ordered. pc 23:07 US 1st trimester: HCG 3100 Reviewed. pc 23:11 CBC Ordered. EDMS 23:12 Type & Screen Ordered. EDMS 23:12 MED Profile Ordered. EDMS 23:17 Differential diagnosis: ectopic , incomplete , missed . Plan: [facility]. Data reviewed: old medical records, vital signs, nurses notes, lab test results, all radiology studies and available results. Test interpretation: LAB - all labs as ordered have been reviewed, interpreted and considered in the overall management of the clinical presentation; Ultrasound - interpreted by Radiologist, OB 1st trimester irregular shaped gestational sac, 7w1d without a pole, consistent with missed . The patient has been re-examined and re-evaluated. The patient's symptoms have mildly improved after treatment. Physician consultation: Dr. Sheldon Hall MD was contacted at 23:19, regarding patient's condition, and will see patient in ED, shortly. Disposition: The historical points, examination findings, and any diagnostic results supporting the provided diagnosis, were discussed with the patient or legal guardian. The need for further work-up and/or treatment in the hospital was explained. 07/21 00:06 Admission Orders was scanned into stiQRd and attached to record. ml3 Administered Medications: 07/20 23:20 Drug: NS 0.9% 1000 ml [sodium chloride 0.9 % intravenous solution] Route: IV; Rate: kmg1 bolus; Site: left antecubital; Signatures: Dispatcher [address] [facility] Aiden Juarez MD MD pc Soraida Rcoa, DEVEN RN kmg1 Grey Deluca, Technology Program Manager Unit ml3 Karlene Wyman The chart was reviewed and I authenticate all verbal orders and agree with the evaluation and treatment provided.Corrections: (The following items were deleted from the chart) 21:20 21:17 The patient presents with She was seen at for vaginal bleeding, was found to pc be RH positive, had a HCG of 3100 and had hemoglobin drop of 2.5g during the ED visit. She was transferred here for US and OB involvement pc 23:12 23:08 HEMOGLOBIN & HEMATOCRIT+LAB ordered. [facility] EDMS Attachments: 21:08 [facility] Payment Agreement zo 07/21 00:06 Admission Orders ml3 Chart Complete MTDD
--- NOTE | 2016-07-24 10:18 | EDDOCDS ---
Physician Documentation [facility] Name: Bridget Padilla Age: 36 yrs Sex: Female : 1980 Arrival Date: 07/20/2016 Time: 20:35 Bed 1 Private MD: NO PRIMARY PHYSICIAN, . Disposition: 07/20 23:17 Critical Care: Critical care not applicable. pc Disposition: 07/20/16 23:20 Hospitalization ordered by Sheldon Hall for Inpatient Admission. Preliminary diagnosis are Missed , Anemia, unspecified. - Bed requested for Admit. - Status is Inpatient Admission. kmg1 - Condition is Stable. - Problem is new. - Symptoms have improved. HPI: 21:17 This 36 yrs old Female presents to ER via Ambulance with complaints of pc Vaginal Bleeding. 21:17 The history is obtained from the patient, transfer records. The gestational age is pc estimated to be 8 weeks. The patient presents with She was seen at for vaginal bleeding, was found to be RH positive, had a HCG of 3100 and had hemoglobin drop of 2.5g during the ED visit, with a subsequent transfusion of PRBCs. She was transferred here for US and OB involvement. She has not had any cramping or bleeding since leaving . The patient has had no care to date. The patient has not experienced similar symptoms in the past. 23:19 She has not had any oral intake since noon. pc Historical: - Allergies: No known drug Allergies; - Home Meds: 1. Aleve Oral as needed - PMHx: none; - PSHx: none; - The history from nurses notes was reviewed: and I agree with what is documented. - Social history: No barriers to communication noted, The patient speaks fluent Camero[place], Speaks appropriately for age, Smoking status: Patient states former smoker of tobacco. - : The pt / caregiver states he / she is not on anticoagulants. Home medication list is obtained from the patient. - Hospitalizations: : No recent hospitalization is reported. - Exposure Risk Screening:: None identified. - Immunization history:: All immunizations up-to-date. - Family history: Not pertinent. - Social history:: the patient is a non-smoker, the patient does not drink alcohol. 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 The gastrointestinal and genitourinary pc components are also addressed in the HPI. Exam: 21:17 General Appearance: alert, no acute distress. pc 21:17 ENT: ear, nose and throat normal, pharynx normal. 21:17 Neck: The exam reveals no acute abnormalities. ROM is normal and painless. No nuchal rigidity is noted.. 21:17 Respiratory: breathing is even and unlabored, breath sounds are normal. 21:17 Cardiovascular: regular pulse rate, regular heart rhythm, normal heart sounds, equal and full pulses bilaterally. 21:17 Abdomen: non-tender, non-distended, normal bowel sounds. 21:17 Back: normal inspection. 21:17 Skin: skin color is normal, warm, dry. 21:17 Extremities: The extremities have a grossly normal appearance, are non-tender, without acute ROM abnormalities. 21:17 Neuro: alert, oriented to person, place and time, cranial nerves normal as tested, no motor deficits, no sensory deficits. 21:17 Psych: mood is normal. Vital Signs: 20:52 BP 110 / 60; Pulse 90; Resp 18; Temp 97.9(O); Pulse Ox 100% on R/A; Weight 81.65 kg / kmg1 180.01 lbs (R); Height 5 ft. 8 in. (172.72 cm) (R); Pain 0/10; 21:00 BP 113 / 62 (auto/); kmg1 21:00 Pulse 81 MON; Pulse Ox 100% ; kmg1 21:15 BP 117 / 74 (auto/); kmg1 21:15 Pulse 87 MON; Pulse Ox 100% ; kmg1 21:40 BP 106 / 62 (auto/); kmg1 21:40 Pulse 86 MON; Pulse Ox 99% ; kmg1 21:55 BP 105 / 59 (auto/); kmg1 21:55 Pulse 84 MON; Pulse Ox 100% ; kmg1 22:10 BP 100 / 63 (auto/); kmg1 22:10 Pulse 88 MON; Pulse Ox 99% ; km 22:25 BP 101 / 58 (auto/); km 22:25 Pulse 83 MON; Pulse Ox 98% ; kmg1 22:40 BP 101 / 58 (auto/); kmg1 22:40 Pulse 85 MON; Pulse Ox 97% ; kmg1 22:55 BP 102 / 63 (auto/); kmg1 22:55 Pulse 83 MON; Pulse Ox 98% ; kmg1 23:00 BP 102 / 59 Supine; Pulse 93; kmg1 23:02 BP 78 / 52 Sitting; Pulse 108; kmg1 23:07 BP 96 / 52 (auto/); kmg1 23:07 Pulse 74 MON; Pulse Ox 99% ; kmg1 23:10 BP 90 / 59 (auto/); kmg1 23:10 Pulse 79 MON; Pulse Ox 98% ; kmg1 23:25 BP 93 / 62 (auto/); kmg1 23:25 Pulse 81 MON; Pulse Ox 98% ; kmg1 23:40 BP 92 / 60 (auto/); kmg1 23:40 Pulse 83 MON; Pulse Ox 97% ; kmg1 23:55 BP 97 / 54 (auto/); kmg1 23:55 Pulse 91 MON; Pulse Ox 98% ; [facility] 07/21 00:25 BP 105 / 55 (auto/); g1 00:25 Pulse 80 MON; Pulse Ox 98% ; g1 00:40 BP 96 / 52 (auto/); kmg1 00:40 Pulse 77 MON; Pulse Ox 98% ; [facility] 07/20 20:52 Body Mass Index 27.37 (81.65 kg, 172.72 cm) [facility] [place] 07/20 23:02 Unabe to do standing pressure [facility] MDM: 20:44 Pressurizer/Pulse Ox/q 30 min VS ordered. pc 20:44 IV Saline Lock ordered. pc 20:45 NOTHING BY MOUTH+DIET ordered. EDMS 20:45 US 1st trimester: HCG 3100 Ordered. EDMS 21:07 Financial registration complete. zo 21:08 [facility] Payment Agreement was scanned into [employer] and attached to record. zo 22:58 Orthostatic VS ordered. pc 23:06 NS 0.9% 1000 ml IV at bolus once ordered. pc 23:07 US 1st trimester: HCG 3100 Reviewed. pc 23:11 CBC Ordered. EDMS 23:12 Type & Screen Ordered. EDMS 23:12 MED Profile Ordered. EDMS 23:17 Differential diagnosis: ectopic , incomplete , missed . Plan: [facility]. Data reviewed: old medical records, vital signs, nurses notes, lab test results, all radiology studies and available results. Test interpretation: LAB - all labs as ordered have been reviewed, interpreted and considered in the overall management of the clinical presentation; Ultrasound - interpreted by Radiologist, OB 1st trimester irregular shaped gestational sac, 7w1d without a pole, consistent with missed . The patient has been re-examined and re-evaluated. The patient's symptoms have mildly improved after treatment. Physician consultation: Dr. Sheldon Hall MD was contacted at 23:19, regarding patient's condition, and will see patient in ED, shortly. Disposition: The historical points, examination findings, and any diagnostic results supporting the provided diagnosis, were discussed with the patient or legal guardian. The need for further work-up and/or treatment in the hospital was explained. 07/21 00:06 Admission Orders was scanned into [employer] and attached to record. ml3 Administered Medications: 07/20 23:20 Drug: NS 0.9% 1000 ml [sodium chloride 0.9 % intravenous solution] Route: IV; Rate: kmg1 bolus; Site: left antecubital; Signatures: Dispatcher [employer] ([employer] [facility] Aiden Juarez MD MD pc Soraida Roca, DEVEN RN kmg1 Grey Deluca, [employer] ml3 Karlene Wyman The chart was reviewed and I authenticate all verbal orders and agree with the evaluation and treatment provided.Corrections: (The following items were deleted from the chart) 21:20 21:17 The patient presents with She was seen at for vaginal bleeding, was found to pc be RH positive, had a HCG of 3100 and had hemoglobin drop of 2.5g during the ED visit. She was transferred here for US and OB involvement pc 23:12 23:08 HEMOGLOBIN & HEMATOCRIT+LAB ordered. [facility] EDMS Attachments: 21:08 [facility] Payment Agreement zo 07/21 00:06 Admission Orders ml3 Chart Complete MTDD
== END 2016-07-21 10:32 ==
LOC: M ED 20:35 → M PED 20:36 → M SDC 20:36 → M OROP 07-21 00:10 → M PED 07-21 03:09 → M SDC 07-21 10:32 → M OROP 07-21 10:32 → M PED 07-21 10:32
PROVIDERS: ATTEND Specialist
DX: O03.4 Incomplete spontaneous abortion without complication (principal); Z3A.01 Less than 8 weeks gestation of pregnancy; Z87.891 Personal history of nicotine dependence
CPT/HCPCS: 36415; 59812; 76801; 80048; 85027; 86850; 86900; 86901; 88305; 93041; 99285; J1885; J2210; J2250; J2405; J3010

== ENCOUNTER 2017-04-02 16:11 | Outpatient (CLI) | payer OTHER ==
[2017-04-02] VITALS (15 sets, daily range): BP systolic 107–180; BP diastolic 56–99
[~2017-04-02] VITALS: Ht 175.3 cm; Wt 104.1 kg
[~2017-04-02 16:11] MED LIST: ALEV220T26 PO; DOXY-278 PO; TYLE325T5 PO
[2017-04-02] MEDS ORDERED: PRENTAB9 PO (16:46)
[2017-04-02] MEDS ORDERED: ACETAMINOPHEN 500 MG TAB PO PRN (18:00)
[2017-04-02 18:46] LABS: MEAN CORPUSCULAR HEMOGLOBIN 30.6 pg (27.0-33.0); MEAN CORPUSCULAR HGB CONC 34.5 g/dl (32.0-36.5); MEAN CORPUSCULAR VOLUME 88.8 fl (80.0-96.0); RED CELL DISTRIBUTION WIDTH 13.1 % (11.5-14.5); WHITE BLOOD COUNT 7.6 K/mm3 (4.0-10.0)
[2017-04-02 19:14] LABS: ALT/SGPT 11 U/L (12-78); AST/SGOT 10 U/L (15-37); BILIRUBIN,TOTAL 0.3 MG/DL (0.2-1.0); GLOMERULAR FILTRATION RATE > 60.0 (>60); URIC ACID 3.8 MG/DL (2.6-6.0)
--- NOTE | 2017-04-02 23:00 | REPUSA ---
OBSTETRICAL ULTRASOUND INDICATION: OB screening. FINDINGS: A single live intrauterine gestation was identified with a heart rate of 150 bpm. The amniotic fluid index was grossly within normal limits. The placenta was anterior, without evidence o f placenta previa. The fetus was in a transverse lie. The cervix measures 6.1 cm in length and is roya sed. Estimated weight is 1091 g. Normal movement, breathing movements and ton e are noted. The cranium is unremarkable. The right lateral ventricle is slightly prominent in size, measuri ng up to 5 mm. Posterior fossa is within normal limits. The spine demonstrates normal contour a nd appearance. The orbits, facial anatomy, nasal anatomy, and lips are normal in appearance. All 4 ex tremities appear grossly unremarkable. A four-chamber heart is appreciated. The outflow tract is not visualized. The stomach, kidneys, bladder, and diaphragm are intact. A three-vessel umbilical c ord with normal cord insertion is appreciated. BIOMETRIC MEASUREMENTS BPD 7.2 cm HC 25.6 cm AC 23.1 cm FL 5.1 cm IMPRESSION: 1. Single live fetus based on today's measurements at 27 weeks 3 days, with estimated due date of . 2. Slight prominence to the right lateral ventricle . This is of uncertain clinical significance . At tention on follow-up is suggested. 3. No other abnormality detected on the survey. However, the cardiac outflow tracts were not we ll visualized. Attention on repeat study is recommended.
== END 2017-04-02 23:11 | disposition home or self-care (01) ==
LOC: M LDO 16:11
PROVIDERS: ATTEND Obstetrics & Gynecology
DX: O99.89 Other specified diseases and conditions complicating pregnancy, childbirth and the puerperium (principal); Z3A.27 27 weeks gestation of pregnancy; R51 Headache; J06.9 Acute upper respiratory infection, unspecified; R03.0 Elevated blood-pressure reading, without diagnosis of hypertension; Z91.040 Latex allergy status

== ENCOUNTER → 2017-06-03 | Outpatient (REF) | payer OTHER ==
[~2017-06-03] MED LIST changes: +PRENTAB9 PO
== END ==
LOC: M LAB REF 13:05
PROVIDERS: ATTEND Advanced Practice Midwife
DX: Z34.83 Encounter for supervision of other normal pregnancy, third trimester (principal)

== ENCOUNTER 2018-04-21 10:07 | Day surgery (SDC) | payer OTHER ==
[~2018-04-21 10:07] MED LIST changes: -ALEV220T26 PO; +BSS with VANC/TOB/EPI for EYE CASES IR; +CYCLOPENTOLATE 2% OPHTH SOLN 2ML BTL OD; -DOXY-278 PO; +LIDOCAINE 3.5 % 1ML OPHTH TOPICAL GEL OU; +MIDAZOLAM INJ 2 MG/2 ML VIAL (J2250) As Ordered; +OFLOXACIN 0.3 % (OCUFLOX) OPTH SOL 5ML OD; +PHENYLEPHRINE 2.5% OPHTH SOL 2ML OD; +PHENYLEPHRINE HCL 10 % OPHTH. SOL 5ML OD; -PRENTAB9 PO; +TROPICAMIDE 1% OPHTH SOLN 2ML OD; -TYLE325T5 PO; +fentaNYL 100 MCG/2 ML INJECTION (J3010) As Ordered
[2018-04-21] MEDS ORDERED: TROPICAMIDE 1% OPHTH SOLN 2ML As Ordered (10:29)
[2018-04-21] MEDS ORDERED: OFLOXACIN 0.3 % (OCUFLOX) OPTH SOL 5ML As Ordered (10:29)
[2018-04-21] MEDS ORDERED: PHENYLEPHRINE 2.5% OPHTH SOL 2ML As Ordered (10:29)
[2018-04-21] MEDS ORDERED: CYCLOPENTOLATE 2% OPHTH SOLN 2ML BTL As Ordered (10:29)
[2018-04-21] MEDS: POVIDONE-IODINE 5% OPHTH PREP SOL 30ML As Ordered (11:44)
[2018-04-21] MEDS: HEALON DUET (HEALON 10MG/ML 0.55ML & HEALON ENDOCOAT 30MG/ML 0.85ML) As Ordered (11:46)
[2018-04-21] MEDS: LIDOCAINE 1% SDV 5 ML VIAL As Ordered (11:47)
[2018-04-21] MEDS: MOXIFLOXACIN IN BSS 0.25MG/0.25ML INTRACAMERAL INJ (OR EYE ONLY)(J2280) As Ordered (11:48)
[2018-04-21] MEDS: TRIAMCINOLONE PRES FR 40 MG/ML 1ML(TRIESENCE)(OR EYE ONLY)(J3300 PER 1MG) As Ordered (11:48)
== END 2018-04-21 12:54 | disposition home or self-care (01) ==
LOC: M SDC 10:07
DX: H26.9 Unspecified cataract (principal); D64.9 Anemia, unspecified; Z87.891 Personal history of nicotine dependence
CPT/HCPCS: 66984

== ENCOUNTER 2018-04-29 10:21 | Day surgery (SDC) | payer OTHER ==
[~2018-04-29 10:21] MED LIST changes: +ACETAMINOPHEN 325 MG TAB PO; -BSS with VANC/TOB/EPI for EYE CASES IR; -CYCLOPENTOLATE 2% OPHTH SOLN 2ML BTL OD; -LIDOCAINE 3.5 % 1ML OPHTH TOPICAL GEL OU; -OFLOXACIN 0.3 % (OCUFLOX) OPTH SOL 5ML OD; +ONDANSETRON 4MG/2ML VIAL (J2405) As Ordered; -PHENYLEPHRINE 2.5% OPHTH SOL 2ML OD; -PHENYLEPHRINE HCL 10 % OPHTH. SOL 5ML OD; +PHENYLEPHRINE HCL 10 % OPHTH. SOL 5ML OS; -TROPICAMIDE 1% OPHTH SOLN 2ML OD
[2018-04-29] MEDS: PHENYLEPHRINE 2.5% OPHTH SOL 2ML OS (11:23)
[2018-04-29] MEDS: TROPICAMIDE 1% OPHTH SOLN 2ML OS (11:23)
[2018-04-29] MEDS: CYCLOPENTOLATE 2% OPHTH SOLN 2ML BTL OS (11:23)
[2018-04-29] MEDS: LIDOCAINE 3.5 % 1ML OPHTH TOPICAL GEL OU (11:24)
[2018-04-29] MEDS: OFLOXACIN 0.3 % (OCUFLOX) OPTH SOL 5ML OS (11:24)
[2018-04-29] MEDS: POVIDONE-IODINE 5% OPHTH PREP SOL 30ML As Ordered (13:02)
[2018-04-29] MEDS: TRIAMCINOLONE PRES FR 40 MG/ML 1ML(TRIESENCE)(OR EYE ONLY)(J3300 PER 1MG) As Ordered (13:02)
[2018-04-29] MEDS: HEALON DUET (HEALON 10MG/ML 0.55ML & HEALON ENDOCOAT 30MG/ML 0.85ML) As Ordered (13:02)
[2018-04-29] MEDS: LIDOCAINE 1% SDV 5 ML VIAL As Ordered (13:02)
[2018-04-29] MEDS: BSS with VANC/TOB/EPI for EYE CASES IR (13:03)
[2018-04-29] MEDS: ACETYLCHOLINE OPHTH SOLN 1% 2ML (MIOCHOL-E) As Ordered (13:03)
[2018-04-29] MEDS: MOXIFLOXACIN IN BSS 0.25MG/0.25ML INTRACAMERAL INJ (OR EYE ONLY)(J2280) As Ordered (13:03)
[2018-04-29] MEDS ORDERED: AcetaZOLAMIDE 500 MG ER CAP As Ordered (13:20)
[2018-04-29] MEDS: AcetaZOLAMIDE 500 MG ER CAP PO (13:27)
[2018-04-29] MEDS ORDERED: TRIMETHOBENZAMIDE 300 MG CAP PO (13:30)
== END 2018-04-29 14:02 | disposition home or self-care (01) ==
LOC: M SDC 10:21
DX: H26.9 Unspecified cataract (principal); H52.202 Unspecified astigmatism, left eye; R06.83 Snoring; Z91.040 Latex allergy status
CPT/HCPCS: 66984